=== PATIENT | female | born 1930 | race Caucasian/White ===

== ENCOUNTER 2016-06-28 05:57 | Day surgery (SDC) | payer MEDICARE, OTHER ==
--- NOTE | 2016-06-09 12:14 | NUR ---
Face to face interaction with patient. PMH, allergies, meds reviewed and updated. PReop and DOS instructions given and patient was encouraged to call if she has questions.
[~2016-06-28] VITALS: Ht 162.6 cm; Wt 76.4 kg
[~2016-06-28 05:57] MED LIST: DIPH25CA84 PO; FURO20TA4 PO; LACT1CAP73 PO; LATA2.5D7 BOTH EYES; LEVO100T12 PO; MULT-1198 PO; PANT40TA27 PO; POTA10CA37 PO; WARF1TAB6 PO; [UNRECOGNIZED DRUG - CODE] PO
--- OUTSIDE RECORDS SUMMARY | 2016-06-28 06:01 | XMS REPORT | Continuity of Care Document ---
Author Author [facility] Organization [facility] Address Unknown Phone Unavailable Allergies Active Description Code Type Severity Reaction Onset Reported/Identified Relationship to Patient Clinical Status Yes ETHROMYCIN ETHROMYCIN Drug Allergy Mild RASH 10/22/2015 Medications Problems Procedures Code Description Performed By Performed On 96.05 RESP TRACT INTUBAT Guillaume Cohen MD 03/29/2014 Results Test Result Range HELICOBACTER UREASE SCREEN - 10/23/15 14:46 Microbiology Encounters ACCT No. Visit Date/Time Discharge Status Pt. Type Provider Facility Loc./Unit Complaint [id number] 10/23/2015 13:02:00 2015 15:11:00 DIS Outpatient Shahid AQUINO, [facility].END [id number] 09/23/2015 09:00:00 2015 09:00:00 CAN Outpatient Shahid AQUINO, Alex W.END [id number] 03/29/2014 05:53:00 2014 09:46:00 DIS Outpatient Kelly AQUINO, Guillaume Abdul [facility] W.END
--- OUTSIDE RECORDS SUMMARY | 2016-06-28 06:01 | XMS REPORT | Referral Summary ---
Author Author [facility] Organization [facility] Address Unknown Phone Unavailable Encounter VC Date(s): 07/02/15 - 07/02/15 [facility] [address] [place] [address] [phone] Discharge Disposition: 01-Home or Self Care Attending Physician: Ulises Stark MD Admitting Physician: Ulises Stark MD Vital Signs No data available for this section Problem List No data available for this section Allergies, Adverse Reactions, Alerts No data available for this section Medications No data available for this section Results No data available for this section Immunizations No data available for this section Procedures No data available for this section Social History No data available for this section Assessment and Plan No data available for this section
[2016-06-28 06:22] VITALS: Ht 162.6 cm; Wt 76.4 kg
[2016-06-28 06:23] VITALS: BP 177/84; PULSE 102; RESP 15; TEMP 98.1; O2SAT 95
[2016-06-28] MEDS ORDERED: LR 1,000 ML IV SCH (07:00)
[2016-06-28] MEDS ORDERED: LIDOCAINE 1% (10mg/ml) 2ml SDV INJ ONE (07:00)
[2016-06-28 07:19] LABS: INR 1.25 (0.76-1.04); PROTHROMBIN TIME 13.6 SEC (9.31-12.49)
--- NOTE | 2016-06-28 07:23 | ANESPREOP ---
Anesthesia Record Date and Time DATE: 06/28/16 TIME: 07:15 Proposed Surgical Procedure COLONOSCOPY Allergies: Coded Allergies: erythromycin base (Verified Allergy, Unknown, RASH, 06/28/16) Ht/Wt/BMI Height: 5 ' 4.00 " Weight: 76.400 kg BMI: 28.9 kg/m2 Vital Signs Date Time Temp Pulse Resp B/P Pulse Ox O2 Delivery O2 Flow Rate FiO2 06/28/16 06:23 98.1 102 15 177/84 95 Room Air Medications Inpatient Medications Current Medications Medications (Trade) Dose Ordered Sig/Brian Start Time Stop Time Status Last Admin Dose Admin Lactated Ringer's (Lactated Ringers) 1,000 ml @ 50 mls/hr Q20H 06/28/16 07:00 Diphenhydramine HCl (Benadryl) 25 Mg Capsule, 1 CAP PO HS, (Reported) Last Taken: on 06/27/162199 Furosemide (Furosemide) 20 Mg Tablet, 1 TAB PO HS, (Reported) Last Taken: on 06/27/162199 Lactobacillus Combination No.4 (Probiotic) 1 Each Capsule, 1 CAP PO HS, (Reported) Last Taken: on 06/26/16 0800 Latanoprost (Latanoprost) 2.5 Ml Drops, 1 DROP BOTH EYES HS, (Reported) Last Taken: on 06/27/16 220 Levothyroxine Sodium (Levothyroxine Sodium) 100 Mcg Tablet, 100 MCG PO DAILY, (Reported) Last Taken: on 06/28/16 0530 Multivitamin (Multi Vitamin Daily) 1 Each Tablet, 1 TAB PO NOON, (Reported) Last Taken: on 06/27/16 0800 Pantoprazole Sodium (Pantoprazole Sodium) 40 Mg Tablet.dr, 40 MG PO NOON, (Reported) Last Taken: on 06/28/16 0530 Potassium Chloride (Potassium Chloride) 10 Meq Capsule.er, 1 TAB PO DAILY, (Reported) Last Taken: on 06/27/16 220 Verapamil HCl (Verapamil ER) 240 Mg Tablet.er, 240 MG PO DAILY, (Reported) Last Taken: on 06/27/16 0800 Warfarin Sodium (Warfarin Sodium) 1 Mg Tablet, 3 MG PO DAILY, (Reported) Last Taken: on 06/23/16 0800 Currently on Beta Brenden: No Medical/Surgical History Anesthesia PMH: Reports: *Dyspnea (MUCH IMPROVED SINCE TAKING FUROSEMIDE), * Hypertension, Arthritis, 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), Cancer (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;RT BUTTOCK MELANOMA,BCC NOSE), Deep Vein Thrombosis, Glaucoma (JUST STARTED EYE DROPS 2016), Reflux (well controlled), Thyroid Disease (on replacement- well controlled), Denies: *Angina, *Diabetes, *OK, Anesthesia Reactions, Asthma, COPD, Cardiac Arrythmia, Clotting Problems, Headaches, Hepatitis, Hiatal Hernia, Malignant Hyperthermia, Pacemaker, Pneumonia, Renal Disease, Rheumatic Fever, Seizures, Sleep Apnea, Tuberculosis Smoking Status: Never smoker Use Chewing Tobacco?: No Substance Use Type: does not use HX of Last Menstrual Period: POST MENOPAUSAL Past Surgical History Orthopedic Surgeries: Yes - METATARSAL PINNING Abdominal Surgeries: No Genitourinary Surgeries: No Cardiac Surgeries: No Endocrine Surgeries: No Reproductive Surgeries: Yes - D&C, BERTHA/BSO, LT & RT LUMPECTOMY W/ AX LYMPH NODE DISSECTION Neurological Surgeries: No Ear Surgeries: No Nose Surgeries: No Throat Surgeries: Yes - EGD Other Surgeries: Yes - MELANOMA REMOVAL, COLONOSCOPY, VARICOSE VEIN TRTMT, B CATARACTS PER HX Anesthesia Adverse Reactions: FOUND none Family Hx of Anesthesia Advers: none Hx of Motion Sickness: No Pertinent Findings Test 06/28/16 06:46 Prothromb Time International Ratio 1.25 (0.76-1.04) Physical Exam Respiratory: Lungs clear Cardiovascular: FOUND Regular rate, rhythm Airway Assessment Mallampati Score: II TMD: 3 Fingerbreadths Neck Extension: Good Overall Assessment: No Airway Concerns ASA: 3 Plan Anesthesia Plan: TIVA Discussion Discussed risks/options/alternatives of anesthesia and questions answered. Patient consents. Nursing pain assessment noted. Present: Children (daughter) Attestation Statement Prior to the delivery of any anesthetic medication, I examined the patient, developed the plan, obtained the patient's consent and discussed the risk and benefits of the procedure with the patient/guardian. SHERRILL MCNAIR CRNA Jun 28, 2016 07:23
[2016-06-28] MEDS ORDERED: PROPOFOL 500mg 50 ML IV ONE ×2 (07:30→09:09)
[2016-06-28 09:24] VITALS: BP 160/77; PULSE 95; RESP 12; TEMP 99.2; O2SAT 95
--- NOTE | 2016-06-28 09:24 | GSPOSTPROC ---
Immediate Operative Note DATE: 06/28/16 TIME: 09:22 Postop Diagnosis: * Mild Internal Hemorrhoids * Mild diverticulosis * Multiple colon polyps * Contracture of splenic flexure Surgical Procedure: C-scope w/Polypectomy (and biopsies of splenic flexure and adjacent to polypectomy site.) Surgeon: David ASA: 3 JOHN PARIKH MD Jun 28, 2016 09:24
[2016-06-28 09:39] VITALS: BP 143/68; PULSE 96; RESP 16; O2SAT 90
--- NOTE | 2016-06-28 09:42 | ANESPO ---
Post-Op Note Date 06/28/16 Time: 09:39 Status Pt Participated in Evaluation: Pt participated in person Vital Signs Date Time Temp Pulse Resp B/P Pulse Ox O2 Delivery O2 Flow Rate FiO2 06/28/16 06:23 98.1 102 15 177/84 95 Room Air Respiratory Function: Airway patent Cardiovascular Function: Regular pulse Mental Status: Alert/oriented Pain Level Intensity: 0 Hydration: Taking po fluids Complications during Recovery None apparent Follow-Up Instructions Instructions Per Surgeon SHERRILL MCNAIR CRNA Jun 28, 2016 09:42
[2016-06-28 09:54] VITALS: BP 116/64; PULSE 95; RESP 18; O2SAT 94
[2016-06-28 10:09] VITALS: BP 131/65; PULSE 96; RESP 20; TEMP 98.2; O2SAT 96
--- NOTE | 2016-06-29 10:54 | OPNOTEF ---
DATE OF OPERATION 06/28/2016 SURGEON Benny Hernandez MD PREOPERATIVE DIAGNOSES 1. Hematochezia. 2. Daily use of Coumadin - held for procedure. POSTOPERATIVE DIAGNOSES 1. Mild internal hemorrhoids. 2. Mild pandiverticulosis. 3. 0.5 cm sessile polyp of the rectum x 2. 4. 0.5 cm sessile polyp of the proximal transverse colon x 2. 5. 1 cm sessile polyp of the hepatic flexure - removed in a piecemeal fashion. . 6. 0.5 cm pedunculated polyp of the cecum. 7. 1 cm sessile polyp of the ascending colon - removed in a piecemeal fashion. 8. 0.7 cm sessile polyp of the distal transverse colon. 9. 0.5 cm sessile polyp of the splenic flexure. 10. Abnormal contracture of the splenic flexure of uncertain etiology but no apparent mass or polyp in the location. 11. 0.7 cm sessile polyp of the descending colon x 2. 12. 1.5 cm pedunculated polyp of the sigmoid colon at 18 cm. PROCEDURE Colonoscopy with hot biopsy forceps polypectomy x 3, hot snare polypectomy x 9, biopsies of the splenic flexure abnormality, biopsies of the colon adjacent to the sigmoid colon polypectomy site. ANESTHESIA TIVA ASA CLASS 3 INDICATIONS The patient is an 85-year-old female who is on Coumadin. She had had an episode of hematochezia at the beginning of May. Given the bleeding episode, it was felt that she should have a colonoscopy to investigate for potential sources of bleeding. Her last colonoscopy had been performed in 2011 on 05/20/2011. She had had five prior adenomatous polyps removed between 1997 and 2003. FINDINGS There were mild internal hemorrhoids and a few diverticula scattered throughout the colon. There were numerous polyps with the largest being in the sigmoid colon at 18 cm. This was pedunculated but appeared to be removed in its entirety. There were also large sessile polyps that were oval in shape with one in the hepatic flexure and one in the ascending colon. Given their positions, these required piecemeal excision. There were numerous other polyps that were able to be removed. There was an abnormality in the splenic flexure where three folds of the colon seemed to be drawn together into one condensed area though no mass was appreciated to lead to this anatomy. DESCRIPTION OF PROCEDURE After informed stent was obtained, the patient was taken to the operating room and placed in left lateral decubitus position. IV anesthesia was administered by the anesthesia team. A digital rectal exam was performed and was normal. Olympus video colonoscope with an AmplifEYE device was inserted and retroflexed to examine the distal rectum. Mild internal hemorrhoids were noted. The patient had received a MiraLAX/Dulcolax bowel prep the day prior. The scope was advanced to the mid rectum where two polyps were encountered. These were grasped with hot biopsy forceps and the mucosa was tented prior to application of cautery. Once the base of polyp was cauterized, the polyps were removed with the biopsy forceps and were sent to pathology. After removal of the two polyps in the rectum the scope was advanced up to the proximal transverse colon. There was another polyp that appeared amenable to snare polypectomy. The polyp was encircled with the polypectomy snare and the snare was tightened around the base of the polyp. The mucosa was tented and cautery was applied to resect the polyp. It was retrieved with biopsy forceps through the colonoscope and was sent to pathology. Another 0.5 cm polyp was noted in the proximal transverse colon and this was also removed with the polypectomy snare technique. The scope was advanced up to the hepatic flexure. There was a wider polyp that was encircled with the polypectomy snare but, given its broad-based nature, the polyp was not able to be removed with a single application of the snare. The edge of the polyp that remained after first snare resection was also excised with the polypectomy snare and additional fragments of the edge were removed with hot biopsy forceps. Once the polyp was fully removed, it was withdrawn through the colonoscope and sent to pathology. The scope was then successfully advanced to the cecum without difficulty. The cecum was identified by the appendiceal orifice and ileocecal valve. Within the cecum, there was a 0.5 cm pedunculated polyp and the base of this was able to be grasped with the hot biopsy forceps. The polyp was elevated and cautery was used to divide the base of the polyp after it was cauterized. The forceps were used to retrieve the polyp through the colonoscope. The patient's bowel prep had been very good with minimal residual liquid contents of the colon that were able to be irrigated and evacuated via the colonoscope. During scope withdrawal, a 1 cm polyp in the ascending colon was retrieved with two applications of the polypectomy snare. The scope was withdrawn to the distal transverse colon where a 0.7 cm polyp was encountered. It was removed with the hot snare polypectomy technique. Another slightly smaller polyp of 0.5 cm was noted in the splenic flexure and it was removed with a hot snare polypectomy technique. With the abnormality noted in the splenic flexure and because of the hot appearance, multiple biopsies of the mucosa in this region were taken and were sent to pathology. Two 0.7 cm polyps were encountered in the descending colon. Both of these were removed with a hot snare polypectomy technique. The final polyp was encountered in the sigmoid colon at 18 cm. This appeared to be a large 1.5 cm pedunculated polyp with a stalk that had formed due to traction. Manipulation of the polypectomy snare did allow encircling the polyp at its base, but further manipulation down onto the stalk of the polyp was not able to be achieved, so the stalk was divided at the base of the polyp. Suction was used to hold the polyp at the end of the scope as the scope was withdrawn. The polyp was then removed from the end of the scope and was sent to pathology. The colonoscope was reinserted back to the polypectomy site and further withdrawal of the scope was performed after some biopsies of the possibly abnormal adjacent mucosa were taken. No other abnormalities were noted. The polypectomy sites performed during scope insertion were hemostatic on scope withdrawal. The patient tolerated the procedure well. She was awakened and transferred to the recovery area in stable condition. RECOMMENDATIONS 1. Await pathology results to determine appropriate recommendations based on her multiple polyps. 2. Hold Coumadin for an additional 5 days given the numerous polypectomy sites including some larger piecemeal excision sites. MAGGIE
== END 2016-06-28 10:11 | disposition home or self-care (01) ==
LOC: SCU 05:57
PROVIDERS: ATTEND Surgery
DX: C18.5 Malignant neoplasm of splenic flexure (principal); D12.0 Benign neoplasm of cecum; D12.3 Benign neoplasm of transverse colon; D12.2 Benign neoplasm of ascending colon; D12.4 Benign neoplasm of descending colon; D12.5 Benign neoplasm of sigmoid colon; D12.6 Benign neoplasm of colon, unspecified; D12.8 Benign neoplasm of rectum; K92.1 Melena; K64.8 Other hemorrhoids; K57.30 Diverticulosis of large intestine without perforation or abscess without bleeding; K56.69 Other intestinal obstruction; Z86.010 Personal history of colon polyps; Z80.0 Family history of malignant neoplasm of digestive organs; Z79.01 Long term (current) use of anticoagulants; I48.0 Paroxysmal atrial fibrillation; I10 Essential (primary) hypertension; E78.00 Pure hypercholesterolemia, unspecified; E03.9 Hypothyroidism, unspecified; I69.354 Hemiplegia and hemiparesis following cerebral infarction affecting left non-dominant side; Z86.718 Personal history of other venous thrombosis and embolism; G25.0 Essential tremor; J30.9 Allergic rhinitis, unspecified; K21.9 Gastro-esophageal reflux disease without esophagitis; Z79.899 Other long term (current) drug therapy
CPT/HCPCS: 36415; 45380; 45384; 45385; 85610; J7120; 88305

== ENCOUNTER 2016-07-21 05:51 | Inpatient (IN) | payer MEDICARE, OTHER ==
[~2016-07-21] VITALS: Ht 160 cm; Wt 81.3 kg
[2016-07-21] VITALS (23 sets, daily range): BP systolic 146–172; BP diastolic 67–86; PULSE 75–99; RESP 12–19; TEMP 97.6–98.8; O2SAT 89–98; Ht 160 cm; Wt 81.3 kg
[~2016-07-21 05:51] MED LIST changes: +DIGO125T88 PO; -PANT40TA27 PO
--- OUTSIDE RECORDS SUMMARY | 2016-07-21 05:55 | XMS REPORT | Continuity of Care Document ---
Author Author [facility] Organization [facility] Address Unknown Phone Unavailable Support Name Relationship Address Phone JOHN HERNANDEZ MD Caregiver [address] [place] [address] Unavailable LA PANIAGUA DO Caregiver [address] [place] [address] Unavailable DENISA SERRATO Next Of Kin [address] [place] [address] Insurance Providers Guarantor Christina Serrato Address [address] [place] [address] Email Payer Medicare Policy Number [id number] Subscriber's Name Christina Serrato Relationship 18 Self Effective Date 93 Payer [employer] Policy Number [id number] Subscriber's Name Christina Serrato Relationship 18 Self Group Number [id number] Effective Date 93 Advance Directives Directive Response Recorded Date/Time Ordered Resuscitation Status Full Code 06/25/16 3:17pm Resuscitation Documents on File No 06/28/16 6:28am DPOA for Healthcare Only No 06/28/16 6:28am Living Will No 06/28/16 6:28am Problems Active Problems Medical Problem Onset Date Status Abrasion Unknown Acute Leg pain Unknown Acute Leg pain, anterior Unknown Acute Leg wound, right Unknown Acute Spasm of paraspinal muscle Unknown Acute Urticaria not otherwise specified Unknown Acute Medications Current Home Medications Medication Dose Units Route Directions Days Qty Instructions Start Date Diphenhydramine Hcl (Benadryl) 25 Mg Capsule 1 Cap Oral Bedtime 06/09/16 Furosemide 20 Mg Tablet 1 Tab Oral Bedtime 06/09/16 Lactobacillus Combination No.4 (Probiotic) 1 Each Capsule 1 Cap Oral Bedtime 06/09/16 Latanoprost 2.5 Ml Drops 1 Drop Both Eyes Bedtime 06/25/16 Levothyroxine Sodium 100 Mcg Tablet 100 Mcg Oral Daily 01/29/14 Multivitamin (Multi Vitamin Daily) 1 Each Tablet 1 Tab Oral Give At Noon 06/05/15 Pantoprazole Sodium 40 Mg Tablet.dr 40 Mg Oral Give At Noon 06/04 Potassium Chloride 10 Meq Capsule.er 1 Tab Oral Daily 06/09/16 Verapamil Hcl (Verapamil Er) 240 Mg Tablet.er 240 Mg Oral Daily 01/29/14 Warfarin Sodium 1 Mg Tablet 3 Mg Oral Daily Hold for 5 days after colonoscopy 01/29/14 Past Home Medications Medication Directions Ordered Status Acetaminophen/Dp-Hydram Hcl (Tylenol Pm Ex-Str Caplet) 1 Tab Tablet, 1 Tab Oral As Needed 05/20/11 Discontinued Diphenhydramine Hcl (Benadryl) 25 Mg Capsule, 25 Mg Oral Daily 05/18/11 Discontinued Fenofibrate Nanocrystallized (Tricor) 145 Mg Tablet, Daily 03/23/10 Discontinued Multivitamins (Multivitamin) 1 Tab Tablet, 1 Tab Oral Daily 05/20/11 Discontinued Omeprazole (Prilosec) 20 Mg Capsule.dr, 40 Mg Oral Daily 05/18/11 Discontinued Simvastatin , 20 Daily 10/11/09 Discontinued Vermapil , 10/11/09 Discontinued Warfarin Sodium (Coumadin) 2 Mg Tablet, 1 Daily Except Tue10/11/09 Discontinued Warfarin Sodium (Coumadin) 3 Mg Tablet, 3 Mg Oral Tuesday Only 09/16/11 Discontinued Social History Social History Problem Response Recorded Date/Time Onset Date Status Reason for Hospitalization colonoscopy 06/28/2016 9:32am Not Applicable Not Applicable Chewing Tobacco Status No 06/09/2016 11:42am Not Applicable Not Applicable Hx Substance Use No 06/09/2016 11:42am Not Applicable Not Applicable Hx Alcohol Use No 06/09/2016 11:42am Not Applicable Not Applicable Has the pt used tobacco in the last 12 months No 06/25/2016 9:23am Not Applicable Not Applicable Tobacco Usage none 06/05/2015 10:01pm Not Applicable Not Applicable Query Response Start Date Stop Date Smoking Status Former smoker Hospital Discharge Instructions Instructions: Care Instructions: I was in the hospital because (patient own words): colonoscopy Discharge Diet: You may resume your usual diet. Discharge Activity: You may resume your usual activity. Follow Up Appointments: No specific follow-up appointment with Dr. Hernandez is necessary. You can call his office for any questions or concerns ([phone]). Dr. Hernandez's office will notify you of your results in about 2 weeks. Pending Lab / Results: Will be notified Patient Instructions: Hold coumadin 5 days before restarting Do not drive, operate machinery, drink alcohol, or sign important papers for 24 hours. Expected Signs/Symptoms: You may have some gas discomfort. You may have some rectal bleeding due to the multiple polyps that were removed. Notify Physician If: Contact Dr. Hernandez if you have a fever over 101 degrees, severe abdominal pain, or severe rectal bleeding. During Business Hours:: *In the event of an emergency, call 911 or seek medical care at the nearest emergency room.* During office hours, call Dr. Hernandez's office at [phone]. After Business Hours:: After hours, please call [facility] at [phone] and have the ecdis n navigation operator page Dr. Hernandez or the covering surgeon. Pain Management/Treatment: You should not have significant pain following the procedure. Wound/Incision Care: No wound care required. Condition at time of discharge: Good Plan of Care Discharge Date 06/28/16 10:11am Instructions/Education Provided [facility] Prescriptions See Medication Section Functional Status Query Response Date Recorded Ability to complete ADL's impeded by No change June 28, 2016 6:28am Allergies, Adverse Reactions, Alerts Allergen Type Severity Reaction Status Last Updated Erythromycin base Allergy Unknown RASH Active 06/28/16 Immunizations Query Response on File Recorded Date/Time Hx Influenza Vaccination Y fall 201506/09/16 11:42am Hx Pneumococcal Vaccination Y fall 201506/09/16 11:42am Hx Influenza Vaccination Y fall 201506/09/16 11:42am Hx Tetanus Diptheria Y 03/23/10 08/22/14 4:06am Vital Signs Acute Vital Signs Vital Response Date/Time Temperature (Fahrenheit) 98.2 deg F (96.8 - 99.1) 06/28/2016 10:09am Temperature (Calculated Celsius) 36.43850 degrees C (36.0 - 37.3) 06/28/2016 10:09am Temperature Source Oral 06/28/2016 10:09am Pulse Rate (adult) 96 bpm (60 - 100) 06/28/2016 10:09am Respiratory Rate 20 breaths/min (10 - 20) 06/28/2016 10:09am O2 Sat by Pulse Oximetry 96 % (90 - 100) 06/28/2016 10:09am Oxygen Delivery Method Room Air 06/28/2016 10:09am Blood Pressure 131/65 mm Hg 06/28/2016 10:09am Blood Pressure Source Automatic Cuff 06/28/2016 10:09am Height (Feet) 5 feet 06/28/2016 6:22am Height (Inches) 4.00 inches 06/28/2016 6:22am Weight (Kilograms) 76.400 kg 06/28/2016 6:22am Body Mass Index (BMI) 28.9 06/28/2016 6:22am Results Laboratory Results Test Name Result Units Flags Reference Collection Date/Time Result Date/ Time Comments Prothromb Time International Ratio 1.25 H 0.76-1.04 06/28/2016 6:46am 06/28/2016 7:19am THERAPUTIC RANGE=2.00-3.00 FOR ANTI-THROMBOSIS THERAPUTIC RANGE=2.50-3.50 FOR IMPLANTED VALVE Procedures Procedure Status Date Provider(s) Chest x-ray 2vw frontal&latl Completed 05/25/16 Tte w/doppler complete Completed 05/27/16 Colonoscopy with polypectomy and biopsy Completed 06/28/16 JOHN HERNANDEZ MD Encounters Encounter Location Arrival/Admit Date Discharge/Depart Date Attending Provider Departed [facility] 06/28/16 5:57am 06/28/16 10 :11am JOHN HERNANDEZ MD Registered [facility] 05/27/16 12:37pm HONG QUIÑONES MD Registered [facility] 05/25/16 10:09am LA PANIAGUA DO
--- OUTSIDE RECORDS SUMMARY | 2016-07-21 05:55 | XMS REPORT | Continuity of Care Document ---
Author Author [facility] Organization [facility] Address Unknown Phone Unavailable Allergies Active Description [...] Status Pt. Type Provider Facility Loc./Unit Complaint [id number] 10/23/2015 13:02:00 2015 15:11:00 DIS Outpatient Shahid AQUINO, [facility]END [id number] 09/23/2015 09:00:00 2015 09:00:00 CAN Outpatient Shahid AQUINO, Alex [facility]END [id number] 03/29/2014 05:53:00 2014 09:46:00 DIS Outpatient Kelly AQUINO, Guillaume Abdul [facility]
[2016-07-21] MEDS ORDERED: ALVIMOPAN 12 MG CAPSULE PO ONE (06:00)
[2016-07-21 06:32] LABS: BASOPHILS # (AUTO) 0.1 T/MM3 (0-0.2); BASOPHILS % (AUTO) 1.1 % (0-2); EOSINOPHILS # (AUTO) 0.3 T/MM3 (0-0.5); EOSINOPHILS % (AUTO) 3.7 % (0-4); HGB - HEMOGLOBIN 15.8 GM/DL (12-16); IMMATURE GRANULOCYTE # (AUTO) 0.02 T/MM3 (0.00-0.03); IMMATURE GRANULOCYTE % (AUTO) 0.3 % (0.0-0.5); LYMPHOCYTES # (AUTO) 2.2 T/MM3 (1-4.8); LYMPHOCYTES % (AUTO) 32.2 % (23-45); MEAN CORPUSCULAR HGB 28.7 UUG (26-34); MEAN CORPUSCULAR HGB CONC(MCHC 32.9 GM/DL (31-37); MEAN CORPUSCULAR VOLUME 87.1 UM3 (80-100); MEAN PLATELET VOLUME 9.6 UM3 (9.4-12.4); MONOCYTES # (AUTO) 0.7 T/MM3 (0-0.8); MONOCYTES % (AUTO) 10.3 % (0-9.0); NEUTROPHILS #(AUTO)-ABSOLUTE 3.6 T/MM3 (1.8-7.7); NEUTROPHILS % (AUTO) 52.4 % (33-66); RED BLOOD COUNT 5.51 M/MM3 (4.00-5.20)
[2016-07-21 06:36] LABS: INR 1.02 (0.76-1.04); PROTHROMBIN TIME 11.1 SEC (9.31-12.49)
[2016-07-21 06:43] LABS: ALBUMIN/GLOBULIN RATIO 1.2 RATIO (1.1-2.2); ALKALINE PHOSPHATASE 71 U/L (38-126); ALT (SGPT) 48 U/L (9-52); ANION GAP 16 MEQ/L (5-15); AST (SGOT) 41 U/L (14-36); BUN/CREATININE RATIO 33 RATIO (6-26); CALCIUM 9.4 MG/DL (8.4-10.2); CHLORIDE 105 MEQ/L (98-107); CO2 - CARBON DIOXIDE 27 MEQ/L (22-30); CREATININE 0.7 MG/DL (0.7-1.2); GLOMERULAR FILTRATION RATE 79; GLUCOSE 117 MG/DL (65-110); POTASSIUM 3.7 MEQ/L (3.6-5); SODIUM 148 MEQ/L (134-144); TOTAL PROTEIN 7.4 G/DL (6.3-8.2)
[2016-07-21] MEDS ORDERED: LIDOCAINE 1% (10mg/ml) 2ml SDV INJ ONE (07:00)
[2016-07-21] MEDS: LR 1,000 ML IV SCH ×3 (07:06→19:19)
--- NOTE | 2016-07-21 07:19 | ANESPREOP ---
Anesthesia Record Date and Time DATE: 07/21/16 TIME: 07:08 Pre-Op Diagnosis colon ca Proposed Surgical Procedure OPEN COLON RESECTION OF SPLENIC FLEXURE NPO since: mn Allergies: Coded Allergies: erythromycin base (Verified Allergy, Unknown, RASH, 06/28/16) Ht/Wt/BMI Height: 5 ' 3.00 " Weight: 75.000 kg BMI: 29.3 kg/m2 Vital Signs Date Time Temp Pulse Resp B/P Pulse Ox O2 Delivery O2 Flow Rate FiO2 07/21/16 06:47 98.3 75 15 165/74 94 Room Air Medications Inpatient Medications Current Medications Medications (Trade) Dose Ordered Sig/Brian Start Time Stop Time Status Last Admin Dose Admin Lactated Ringer's (Lactated Ringers) 1,000 ml @ 125 mls/hr Q8H 07/21/16 07:00 07/21/16 07:06 125 MLS/HR Digoxin (Digoxin) 125 Mcg Tablet, 1 TAB PO DAILY, (Reported) Last Taken: on 07/21/16514 Diphenhydramine HCl (Benadryl) 25 Mg Capsule, 1 CAP PO HS, (Reported) Last Taken: on 07/20/16 Furosemide (Furosemide) 20 Mg Tablet, 1 TAB PO 4XW, (Reported) PT TAKES 20 MG OF LASIX 2 DAYS IN A ROW, ON THIRD DAY 40 MG THEN CYCLE REPEATS. Last Taken: on 07/19/16 Lactobacillus Combination No.4 (Probiotic) 1 Each Capsule, 1 CAP PO HS, (Reported) Last Taken: on 07/20/16 Latanoprost (Latanoprost) 2.5 Ml Drops, 1 DROP BOTH EYES HS, (Reported) Last Taken: on 07/20/16 Levothyroxine Sodium (Levothyroxine Sodium) 100 Mcg Tablet, 100 MCG PO DAILY, (Reported) Last Taken: on 07/21/16514 Multivitamin (Multi Vitamin Daily) 1 Each Tablet , 1 TAB PO NOON, (Reported) Last Taken: on 07/20/16 Potassium Chloride (Potassium Chloride) 10 Meq Capsule.er, 1 TAB PO DAILY, (Reported) Last Taken: on 07/20/16 Verapamil HCl (Verapamil ER) 240 Mg Tablet.er, 240 MG PO DAILY, (Reported) Last Taken: on 07/21/16514 Warfarin Sodium (Warfarin Sodium) 1 Mg Tablet, 3 MG PO DAILY, (Reported) Hold for 5 days after colonoscopy Last Taken: on 07/15/16 Currently on Beta Brenden: No Medical/Surgical History Anesthesia PMH: Reports: *Dyspnea (MUCH IMPROVED SINCE TAKING FUROSEMIDE), * Hypertension (Seen Dr. 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;RT BUTTOCK MELANOMA,BCC NOSE), Deep Vein Thrombosis, Glaucoma (JUST STARTED EYE DROPS 2016), Hiatal Hernia, Other (essential tremor ), Reflux (well controlled), Thyroid Disease (on replacement- well controlled), Denies: *Angina, *Diabetes, *NE, Anesthesia Reactions (NO AIRWAY ISSUES ), Asthma, COPD, Cardiac Arrythmia, Clotting Problems (TAKES WARFIN-BRUISES EASILY- NO BLEEDING ), Headaches, Hepatitis, Malignant Hyperthermia, Pacemaker, Pneumonia, Renal Disease, Rheumatic Fever, Seizures, Sleep Apnea, Tuberculosis Use Chewing Tobacco?: No Substance Use Type: does not use HX of Last Menstrual Period: HYST. Past Surgical History Orthopedic Surgeries: Yes - METATARSAL PINNING Abdominal Surgeries: No Genitourinary Surgeries: No Cardiac Surgeries: No Endocrine Surgeries: No Reproductive Surgeries: Yes - D&C, BERTHA/BSO, LT & RT LUMPECTOMY W/ AX LYMPH NODE DISSECTION Neurological Surgeries: No Ear Surgeries: No Nose Surgeries: No Throat Surgeries: Yes - EGD Other Surgeries: Yes - MELANOMA REMOVAL, COLONOSCOPY, VARICOSE VEIN TRTMT, B CATARACTS Anesthesia Adverse Reactions: FOUND none Pertinent Findings Laboratory Tests 07/21/16 06:15 Test 07/21/16 06:15 Prothromb Time International Ratio 1.02 (0.76-1.04) EKG Rhythm: Sinus Rhythm Physical Exam Respiratory: Bilat breath sounds equal, Lungs clear Cardiovascular: FOUND Irregularly irregular, FOUND No murmur Airway Assessment Mallampati Score: III TMD: 2 Fingerbreadths Neck Extension: Poor Overall Assessment: May Be Diff Intubation ASA: 3 Plan Anesthesia Plan: GETA (pt undestands she is at risk for NE, stroke, , post op ventilation , ) Discussion Discussed risks/options/alternatives of anesthesia and questions answered. Patient consents. Nursing pain assessment noted. Attestation Statement Prior to the delivery of any anesthetic medication, I examined the patient, developed the plan, obtained the patient's consent and discussed the risk and benefits of the procedure with the patient/guardian. FRANCIS CONLEY CRNA July 21, 2016 07:12
[2016-07-21] MEDS ORDERED: ACETAMINOPHEN 1,000 MG in RTU-SALINE 100 ML IV ONE (07:30)
[2016-07-21] MEDS ORDERED: HEPARIN SUB-Q 5,000 unit/0.5ml vial SQ ONE (07:30)
[2016-07-21] MEDS ORDERED: ERTAPENEM 1 G in NORMAL SALINE 100 ML IV ONE (07:30)
[2016-07-21] MEDS ORDERED: FENTANYL 100mcg/2ml INJECTION ONE ×3 (07:34→11:00)
[2016-07-21] MEDS ORDERED: LIDOCAINE JELLY 2% 30ml TUBE ONE ×2 (07:34→07:39)
[2016-07-21] MEDS ORDERED: FENTANYL 250mcg/5ml INJECTION ONE (07:34)
[2016-07-21] MEDS ORDERED: DEXAMETHASONE 4mg/ml - 1ml INJECTION ONE ×2 (07:34→07:48)
[2016-07-21] MEDS ORDERED: METOCLOPRAMIDE 10mg/2ml INJECTION ONE ×2 (07:34→07:48)
[2016-07-21] MEDS ORDERED: MIDAZOLAM 2mg/2ml INJECTION ONE ×2 (07:34)
[2016-07-21] MEDS ORDERED: LABETALOL 20mg/4ml INJECTION IV ONE ×2 (07:34→09:05)
[2016-07-21] MEDS ORDERED: ONDANSETRON 4mg/2ml INJECTION ONE ×4 (07:34→11:09)
[2016-07-21] MEDS ORDERED: ROCURONIUM 50mg/5ml INJECTION IV ONE ×2 (07:34→07:35)
[2016-07-21] MEDS ORDERED: PROPOFOL 200mg 20 ML IV ONE (07:35)
[2016-07-21] MEDS ORDERED: SCOPOLAMINE 1.5 MG PATCH TD ONE (07:45)
[2016-07-21] MEDS ORDERED: PROPOFOL 200mg 200 MG, ESMOLOL 50 MG, KETAMINE 50 MG, LIDOCAINE 2% 100 MG, DEXMEDETOMID... IV ONE ×12 (07:45)
[2016-07-21] MEDS ORDERED: HYDROMORPHONE 2mg/ml INJECTION IV PRN ×2 (09:45→12:15)
--- NOTE | 2016-07-21 12:13 | GSPOSTPROC ---
Immediate Operative Note DATE: 07/21/16 TIME: 12:12 Postop Diagnosis: distal transverse colon cancer Surgery Type: Open Surgical Procedure: Other (Colon resection) Surgeon: David Assisting Surgeon: Amanda ASA: 3 JOHN PARIKH MD July 21, 2016 12:13
[2016-07-21] MEDS ORDERED: METOCLOPRAMIDE 10mg/2ml INJECTION IV PRN (12:15)
[2016-07-21] MEDS ORDERED: ONDANSETRON 4mg/2ml INJECTION IV PRN (12:15)
--- NOTE | 2016-07-21 12:37 | NUR ---
ADMIT ADMIT AT THIS TIME TO ROOM 134 VIA CART AND PACU STAFF. SLIDE BOARD USED TO TRANSFER PATIENT OVER TO SURGICAL UNIT BED. A/OX3 BUT DROWSY. DENIES PAIN. DRESSING ON ABDOMEN CLEAN, DRY, INTACT. DENIES N/V, CHEST PAIN, AND SOA. BED IN THE LOWEST POSITION, CALL LIGHT WITHIN REACH, SIDE RAILS XUP2, AND BED ALARM ON. WILL CONTINUE TO MONITOR.
[2016-07-21] MEDS: ACETAMINOPHEN 500 MG TABLET PO SCH ×2 (13:33→19:31)
--- NOTE | 2016-07-21 14:09 | ANESPO ---
Post-Op Note Date 07/21/16 Time: 12:15 Status Pt Participated in Evaluation: Pt participated in person Vital Signs Date Time Temp Pulse Resp B/P Pulse Ox O2 Delivery O2 Flow Rate FiO2 07/21/16 13:46 87 158/69 98 Nasal Cannula 3.00 07/21/16 12:46 97.8 18 Respiratory Function: Airway patent Cardiovascular Function: Regular pulse Mental Status: Alert/oriented Pain Level Intensity: 0 Hydration: IV infusing Complications during Recovery None apparent Follow-Up Instructions Instructions Per Surgeon FRANCIS CONLEY CRNA July 21, 2016 14:09
[2016-07-21] MEDS: KETOROLAC 30mg/ml INJECTION IV PRN (15:25)
--- NOTE | 2016-07-21 18:32 | NUR ---
END OF SHIFT REPORT PATIENT A/OX3. 2 LITERS O2 VIA NASAL CANNULA. AFEBRILE. VITAL SIGNS STABLE. PT HAS NOT BEEN OUT OF BED YET. PAIN HAS BEEN CONTROLLED WITH PRN TORADOL. SCHEDULED DOSE OF TYLENOL WAS NOT ADMINISTERED DUE TO PATIENT THINKING SHE WAS TOO TIRED TO SWALLOW PILLS. DENIES N/V, CHEST PAIN, AND SOA. ADEQUATE OUTPUT FROM BAILEY CATHETER. DRESSING CLEAN, DRY, INTACT. WILL CONTINUE TO MONITOR.
[2016-07-21] MEDS: LATANOPROST 0.005% EYE DROPS 2.5 ML BOTTLE BOTH EYES SCH (21:36)
[2016-07-22] VITALS (8 sets, daily range): BP systolic 127–149; BP diastolic 60–87; PULSE 64–86; RESP 16–18; TEMP 97.3–98.3; O2SAT 90–96
[2016-07-22] MEDS: LR 1,000 ML IV SCH ×3 (03:05→20:43)
[2016-07-22] MEDS: KETOROLAC 30mg/ml INJECTION IV PRN ×2 (03:09→10:17)
[2016-07-22 05:10] LABS: BASOPHILS % (AUTO) 0.2 % (0-2); HCT - HEMATOCRIT 42.7 % (36-46); HGB - HEMOGLOBIN 13.8 GM/DL (12-16); IMMATURE GRANULOCYTE # (AUTO) 0.03 T/MM3 (0.00-0.03); IMMATURE GRANULOCYTE % (AUTO) 0.3 % (0.0-0.5); LYMPHOCYTES # (AUTO) 1.7 T/MM3 (1-4.8); MEAN CORPUSCULAR HGB 28.8 UUG (26-34); MEAN CORPUSCULAR HGB CONC(MCHC 32.3 GM/DL (31-37); MEAN CORPUSCULAR VOLUME 89.1 UM3 (80-100); MEAN PLATELET VOLUME 10.2 UM3 (9.4-12.4); MONOCYTES # (AUTO) 1.2 T/MM3 (0-0.8); NEUTROPHILS #(AUTO)-ABSOLUTE 8.6 T/MM3 (1.8-7.7); NEUTROPHILS % (AUTO) 74.5 % (33-66); RED BLOOD COUNT 4.79 M/MM3 (4.00-5.20); WBC - WHITE BLOOD COUNT 11.5 T/MM3 (4.5-11.0)
[2016-07-22 05:22] LABS: ANION GAP 10 MEQ/L (5-15); BUN/CREATININE RATIO 31 RATIO (6-26); CALCIUM 8.3 MG/DL (8.4-10.2); CHLORIDE 105 MEQ/L (98-107); CO2 - CARBON DIOXIDE 26 MEQ/L (22-30); CREATININE 0.8 MG/DL (0.7-1.2); GLOMERULAR FILTRATION RATE 68; GLUCOSE 138 MG/DL (65-110); POTASSIUM 4.4 MEQ/L (3.6-5); SODIUM 141 MEQ/L (134-144)
[2016-07-22] MEDS: ACETAMINOPHEN 500 MG TABLET PO SCH ×3 (05:34→20:41)
[2016-07-22] MEDS: LEVOTHYROXINE 100 MCG TABLET PO SCH (05:36)
--- NOTE | 2016-07-22 05:42 | NUR ---
DR NOTIFIED DR PARIKH WAS NOTIFIED OF LOW URINE OUTPUT THIS AM. NO NEW ORDERS AT THIS TIME. WILL CONTINUE TO MONITOR FLUIDS ARE INCREASED ORALLY.
--- NOTE | 2016-07-22 06:24 | NUR ---
SHIFT SUMMARY PT ALERT AND ORIENTED X3,VITAL SIGNS ARE STABLE ON 2L02 VIA NC. DENIES C/P,N/V AND SOA. PT HAS DENIED NEED OF ASSISTANCE FOR REPOSITIONING IN BED. PT HAS ASKED FOR PRN PAIN MEDICATION, IV TORADOL WAS ADMINISTERED ONCE ON THIS SHIFT. PT HAS REMAINED RESTING IN BED THROUGHOUT THE NIGHT. PT STATES THAT SHE HAD DIFFICULTY REACHING THE SIDE CALL LIGHT, AT BEGINNING OF SHIFT THIS RN PLACED A HANDHELD CALL LIGHT WITHIN REACH OF THE PT. WILL CONTINUE TO MONITOR.
--- NOTE | 2016-07-22 07:40 | OPNOTEF ---
DATE OF OPERATION 07/21/2016 SURGEON Benny Hernandez MD LEAF SIZE PICKER Dr. 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 POSTOPERATIVE DIAGNOSES 1. 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 2. Small umbilical hernia. PROCEDURE Open resection of distal transverse colon, splenic flexure, and proximal descending colon with [id number] functional end-to-end stapled anastomosis. ANESTHESIA General. ASA CLASS 3 INDICATIONS The patient is an 85-year-old female who had a colonoscopy on 06/28/2016. There had been a mucosal abnormality at the splenic flexure and biopsies were taken. These had shown intramucosal moderately differentiated colonic adenocarcinoma involving at least one of the biopsy fragments. Because of the cancer cells seen on biopsies, a colon resection of the area was recommended. FINDINGS The small initial surgical specimen between two vessels proximal and distal to the splenic flexure showed a small polyp and an area of mucosal irregularity that was shown to be a biopsy site on frozen section. It was felt this was actually more likely a polypectomy site than the lesion of concern, so an additional specimen was taken of the distal transverse colon. This did reveal a firm mucosal irregularity that was confirmed by frozen section analysis to be not only an intramural adenocarcinoma but an invasive adenocarcinoma. There was a good blood supply of the mid transverse colon and the descending colon at the area of anastomosis and there was also significant mobility of the transverse colon that allowed for a tension-free [id number] functional end-to-end anastomosis. No other abnormalities of the liver, peritoneum, or other intraabdominal contents were noted. DESCRIPTION OF PROCEDURE After informed consent was obtained, the patient was taken to the operating room and placed in supine position. General endotracheal anesthesia was administered by the anesthesia team. The patient's abdomen was then prepped and draped in usual sterile fashion. A vertical midline incision was then created between the xiphoid and umbilicus. Electrocautery was used to dissect down through the subcutaneous tissue to the level of the fascia. A small hernia defect was noted at the base of the umbilical stalk, so the umbilical stalk was divided with cautery. The fascia was divided with cautery. The peritoneum was elevated between clamps and opened with Metzenbaum scissors. The fascial incision and peritoneal incision were then extended to the xiphoid and to slightly below the umbilical ring. An Pepe wound protector was inserted. The abdomen was explored with palpation of the liver as well as visual inspection. The remainder of the abdomen was visualized and no abnormalities were noted. An Pepe wound protector was inserted and a Bookwalter retractor was used to achieve exposure. The greater omentum was then taken off of the distal transverse colon with cautery. The greater omentum was densely adherent to the mesentery, so care was taken to avoid injury of the mesentery. This led to some bleeding from vessels of the greater omentum which were clamped and ligated using 0 Vicryl sutures. The white line of Toldt was then divided laterally and dissection was continued up around the splenic flexure until the splenic flexure was fully mobilized. The mesentery of the distal transverse colon was transilluminated and a large vessel was identified. This was palpated and had arterial flow, so the dissection was continued just distal to the vessel up to the wall of the colon which was dissected free circumferentially. There was a large marginal artery branch that was clamped and tied. The left colic artery was identified after additional mobilization. There was some bleeding from a vessel on the surface of Gerota's fascia that was clamped and ligated. A plane of mesenteric division along the proximal aspect of the left colic artery was selected. The mesentery was divided between clamps and the mesenteric edges were controlled with 0 Vicryl sutures. Following dissection of these two regions, it was noted that there was a very short segment of colon at the splenic flexure but, given the small abnormality, it was felt that this specimen may be adequate if it remained an intramucosal carcinoma, so the segment was excised after the bowel was divided with a TLC 75 stapler. The remaining aspects of the mesentery of the transverse colon were clamped and divided. The edges of the mesentery were controlled with 0 Vicryl ties. The specimen was then opened on the back table and the mucosal abnormality was identified and marked with a suture to aid the pathologist in frozen section analysis. Frozen section analysis came back as the biopsy fragment, but it was felt that this did not represent the carcinoma since no residual carcinoma cells were seen. Attention was turned to the distal transverse colon and additional greater omentum was cleared from the transverse colon mesentery. Translumination was again used to identify a large branch of the middle colic artery extending up to the mid transverse colon. This was spared and the mesentery was divided just distal to the arterial branch up to the wall of the colon. The colon was divided at this level with a reload of the TLC 75 stapler. When the mesenteric dissection was complete, the specimen was opened on the back table and the more significant mucosal irregularity was identified. It was sent to pathology for confirmation of the lesion in question. Frozen section analysis did come back showing not only cancer cells but invasive adenocarcinoma. Since resection had been completed and confirmed by frozen section analysis, attention was turned to fashioning of the anastomosis. The cut ends of the bowel did overlap significantly to the point that they could be laid adjacent to each other with no tension for greater than 10 cm. Given this redundancy, it was felt that a [id number] functional end-to-end anastomosis would be the best method of reestablishing continuity of the bowel. The abdomen was irrigated copiously with saline and suctioned free of fluid to assure hemostasis. Any areas of additional bleeding on the omentum were clamped and tied with Vicryl sutures. Once hemostasis was assured, the corners of the staple lines of the bowel were cut off and a reload of the linear cutting stapler was placed within the bowel lumen with one side of the stapler in each bowel segment. The stapler was then fired along the antimesenteric borders of the bowel to create the common channel. The staple lines at the edge of the common enterotomy were grasped with Allis clamps and offset. The common enterotomy was closed with a firing of a TX60B stapler. The anastomosis was palpated and was found to be adequate. Two 3-0 Vicryl stitches were placed at the crotch of the anastomosis to prevent unzippering of the staple line. The anastomosis rested without tension. It was noted that there were some bowel loops passing through the defect in the mesentery, so the mesentery was closed with a running 3-0 PDS suture. With the mesenteric defect closed, the greater omentum was draped over the anastomosis and beneath the incision. The entire surgical team changed gowns and gloves and new equipment was used for closure. I had removed the Bookwalter retractor and Pepe wound protector with a clean glove prior to changing equipment and redraping of the patient's abdomen. The subcutaneous layer was inspected and hemostasis was achieved with a new electrocautery pencil. The fascia was then closed with a running #1 PDS suture. The base of the umbilicus was tacked back to the fascia using a [id number] stitch of 3-0 Vicryl. The skin was closed with skin paty. The patient tolerated the procedure well. She was awakened, extubated, and transferred to the recovery area in stable condition. MAGGIE
[2016-07-22] MEDS: DIGOXIN 125 MCG TABLET PO SCH (09:24)
[2016-07-22] MEDS: ALVIMOPAN 12 MG CAPSULE PO SCH ×2 (09:24→20:41)
[2016-07-22] MEDS: VERAPAMIL SR 240 MG TABLET PO SCH (09:24)
[2016-07-22] MEDS: ENOXAPARIN 30 MG/0.3 ML INJECTION SQ SCH ×2 (09:25→20:41)
--- NOTE | 2016-07-22 10:27 | NUR ---
CM CM IN TO VISIT WITH PT. SHE IS ALERT AND ORIENTED. SHE REPORTS THAT SHE PLANS TO RETURN HOME. SHE HAS 1 DAUGHTER THAT LIVES WITH HER AND ANOTHER THAT WILL BE VISITING FOR AN EXTENDED TIME. BOTH ARE ABLE TO ASSIST HER NEEDED. SHE DENIES NEED FOR ADDITIONAL SERVICES. SHE IS GIVEN CM CONTACT INFORMATION. DEEE SCORE IS 8. Addendum: 07/22/16 at 1028 by TATE SANTOS RN Amended: Links added.
--- NOTE | 2016-07-22 11:47 | PNF ---
DATE OF VISIT 07/22/2016 REASON FOR VISIT Postoperative followup. LIZ Vasquez has done well since surgery. She feels her pain is controlled but she has not been very active. She did report passing a small amount of flatus this morning. The nurse had notified me this morning of borderline urine output overnight. She denies any nausea. OBJECTIVE Afebrile with stable vitals. ABDOMEN: Soft, appropriately tender. She has slight distention. Her dressing remains intact. HEART: Pulse of 79-81 on telemetry with an irregularly irregular rhythm. ASSESSMENT 1. Postop day #1 status post open resection of distal transverse colon, splenic flexure, and proximal descending colon with anastomosis - doing well. 2. Chronic atrial fibrillation - stable pulse. 3. Hypertension - chronic, stable. 4. Hypothyroidism - chronic, stable. 5. Personal history of DVT. 6. Personal history of stroke. 7. 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 PLAN 1. I would like to continue the Zamora catheter to monitor urine output today and see if her fluid status is appropriate. I do not want to be too aggressive with IV fluids given her age of 85 and her need for Lasix on an outpatient basis. 2. Start clear liquid diet today. This may help regulate fluid balance and she is not having nausea. 3. Continue Entereg to try to avoid a postoperative ileus in this elderly patient. 4. Continue same pain regimen until she is taking more in the way of oral intake. 5. Lovenox 30 b.i.d. was started this morning to try to prevent recurrent DVT. She also has SCDs ordered. I encouraged ambulation to also try to prevent blood clots. 6. I do not want to start full anticoagulation until tomorrow given the omental bleeding that had to be controlled during surgery. If hemoglobin remains stable tomorrow, then I think it would be reasonable to start therapeutic Lovenox and her Coumadin. MTDD
[2016-07-22] MEDS ORDERED: ERTAPENEM 1 G in NS 100 ML IV ONE (14:00)
--- NOTE | 2016-07-22 20:20 | NUR ---
STATUS PT A/O X3. UP WITH ASSIST OF ONE WITH GAIT BELT. PT COMPLAINS OF PAIN IN ABD. PRN TORADOL GIVEN DOCUMENTED. PT ABLE TO PASS GAS AND STOOL. VS STABLE. PT ON RA. DENIES SOA OR NAUSEA. TOLERATING CL LIQUIDS WELL. BAILEY PATENT AND DRAINING. ADEQUATE OUTPUT. AMBULATED IN HALLS WITH ASSISTANCE X4. PT RESTING IN BED WITH ALARM. CALL LIGHT WITHIN REACH. WILL CONTINUE TO MONITOR.
[2016-07-22] MEDS: LATANOPROST 0.005% EYE DROPS 2.5 ML BOTTLE BOTH EYES SCH (20:42)
[2016-07-23] VITALS (7 sets, daily range): BP systolic 132–143; BP diastolic 62–99; PULSE 60–70; RESP 16–19; TEMP 96–98.5; O2SAT 90–93
[2016-07-23] MEDS: KETOROLAC 30mg/ml INJECTION IV PRN (00:10)
--- NOTE | 2016-07-23 03:01 | NUR ---
SHIFT SUMMARY PT ALERT/ORIENTED X3,VITAL SIGNS STABLE ON RM AIR. COMPLAINS OF SOA WHILE AMBULATING, DENIES N/V/CHEST PAIN. PT HAS ASKED FOR PRN PAIN MEDICATION, IV TORADOL WAS ADMINISTERED ONCE ON THIS SHIFT. TURNED IN BED X1 ASSIST. PT SLEPT WELL THROUGHOUT THE NIGHT. CLEAR LIQUID DIET. SCDS ON, CALL LIGHT IN REACH. BED ALARM ON. WILL CONTINUE TO MONITOR.
[2016-07-23] MEDS: ACETAMINOPHEN 500 MG TABLET PO SCH ×3 (05:19→21:18)
[2016-07-23] MEDS: LR 1,000 ML IV SCH ×2 (05:19→19:05)
[2016-07-23] MEDS: LEVOTHYROXINE 100 MCG TABLET PO SCH (05:21)
[2016-07-23 07:55] LABS: BASOPHILS % (AUTO) 0.5 % (0-2); EOSINOPHILS # (AUTO) 0.1 T/MM3 (0-0.5); EOSINOPHILS % (AUTO) 1.6 % (0-4); HCT - HEMATOCRIT 39.3 % (36-46); HGB - HEMOGLOBIN 12.7 GM/DL (12-16); IMMATURE GRANULOCYTE # (AUTO) 0.03 T/MM3 (0.00-0.03); IMMATURE GRANULOCYTE % (AUTO) 0.3 % (0.0-0.5); LYMPHOCYTES # (AUTO) 1.3 T/MM3 (1-4.8); LYMPHOCYTES % (AUTO) 14.6 % (23-45); MEAN CORPUSCULAR HGB 29.2 UUG (26-34); MEAN CORPUSCULAR HGB CONC(MCHC 32.3 GM/DL (31-37); MEAN CORPUSCULAR VOLUME 90.3 UM3 (80-100); MEAN PLATELET VOLUME 10.1 UM3 (9.4-12.4); MONOCYTES # (AUTO) 0.8 T/MM3 (0-0.8); MONOCYTES % (AUTO) 8.7 % (0-9.0); NEUTROPHILS #(AUTO)-ABSOLUTE 6.5 T/MM3 (1.8-7.7); NEUTROPHILS % (AUTO) 74.3 % (33-66); RED BLOOD COUNT 4.35 M/MM3 (4.00-5.20); WBC - WHITE BLOOD COUNT 8.8 T/MM3 (4.5-11.0)
[2016-07-23 08:08] LABS: CHLORIDE 107 MEQ/L (98-107); CO2 - CARBON DIOXIDE 28 MEQ/L (22-30); POTASSIUM 4.2 MEQ/L (3.6-5); SODIUM 142 MEQ/L (134-144)
[2016-07-23 08:09] LABS: ANION GAP 7 MEQ/L (5-15); BUN/CREATININE RATIO 26 RATIO (6-26); CALCIUM 8.2 MG/DL (8.4-10.2); CREATININE 0.7 MG/DL (0.7-1.2); GLOMERULAR FILTRATION RATE 79; GLUCOSE 102 MG/DL (65-110)
[2016-07-23] MEDS: ALVIMOPAN 12 MG CAPSULE PO SCH ×2 (08:41→21:16)
[2016-07-23] MEDS: ENOXAPARIN 30 MG/0.3 ML INJECTION SQ SCH ×2 (08:41→21:17)
[2016-07-23] MEDS: VERAPAMIL SR 240 MG TABLET PO SCH (08:43)
--- NOTE | 2016-07-23 09:49 | NUR ---
CM CM IN TO VISIT WITH PT. SHE IS ALERT AND ORIENTED. SHE CONFIRMS THAT HER PLAN IS TO RETURN HOME WITH ASSISTANCE FROM HER DAUGHTERS. CM VISITS WITH HER ABOUT HHS FOR PT/OT. PT REFUSED HHS AT THIS TIME. SHE IS REMINDED THAT SHE HAS CM CONTACT INFORMATION AND IS ENCOURAGED TO CONTACT CM IF DC NEEDS [facility]ISE. SHE VERBALIZED UNDERSTANDING.
[2016-07-23] MEDS ORDERED: FUROSEMIDE 20 MG TABLET PO ONE (10:20)
--- NOTE | 2016-07-23 10:20 | NUR ---
COUMADIN CONSULT (Initial) Dx: chronic atrial fib Today's INR = 1.22. Will give Warfarin 3 mg today. This is the patient's home dose. Will continue to monitor & make adjustments accordingly. Thank you.
--- NOTE | 2016-07-23 11:08 | NUR ---
STATUS PT A&OX3. DENIES PAIN. IVF LR DECREASED FROM 125 TO 50 MLS/HR. PT AMBULATED X2. BAILEY DISCONTINUED. DIET ADVANCE FROM CLR LIQ TO CARDIAC. PT RESTING IN RECLINER, WHEELS LOCKED, ALARM IN PLACE. WILL CONTINUE TO MONITOR.
[2016-07-23] MEDS ORDERED: WARFARIN 3 MG TABLET PO SCH (12:00)
[2016-07-23] MEDS ORDERED: POTASSIUM CL. 10mEq CAP PO ONE (12:00)
[2016-07-23] MEDS: DIGOXIN 125 MCG TABLET PO SCH (12:52)
--- NOTE | 2016-07-23 13:00 | NUR ---
STATUS-MEDICATION A&OX3. HR 70, DIGOXIN GIVEN. PAIN 6/10, PRN TYLENOL GIVEN.
[2016-07-23] MEDS: OXYCODONE I.R. 5 MG TABLET PO PRN ×3 (16:19→23:23)
--- NOTE | 2016-07-23 18:34 | NUR ---
STATUS PATIENT IS ALERT AND ORIENTED X3. PATIENT VITALS ARE STABLE AND PATIENT IS ON ROOM AIR. PATIENT DRESSING IS CLEAN DRY AND INTACT. PATIENT IS UP WITH 1X ASSIST. PATIENT HAS AMBULATED FLOOR 3X WITH NURSING STAFF. PATIENT HAS REQUIRED PRN PO PAIN MEDICATION. WILL CONTINUE TO MONITOR.
[2016-07-23] MEDS: LATANOPROST 0.005% EYE DROPS 2.5 ML BOTTLE BOTH EYES SCH (21:18)
[2016-07-24] VITALS (7 sets, daily range): BP systolic 133–145; BP diastolic 64–69; PULSE 51–65; RESP 16–20; TEMP 96.4–98.2; O2SAT 92–94
--- NOTE | 2016-07-24 00:54 | NUR ---
Chart Check 24 hour chart check completed
--- NOTE | 2016-07-24 03:51 | NUR ---
STATUS PATIENT IS ALTER AND ORIENTEDX3. PATIENT C/O PAIN AT [facility] . PATIENT HAS ASKED FOR PRN PAIN MEDICATION.PRN NORCO WAS ADMINISTRATED TWICE ON THIS SHIFT. PATIENT SLEPT WELL THROUGHOUT THE SHIFT. PATIENT AMBULATED TO BATHROOM WITH GAIT BELT AND ONE STANDBY ASSIST.PATIENT HAD ADEQUATE URINARY OUTPUT. SM SOFT STOOL BM X1 DURING NIGHT. ON ROOM AIR. DENIES CHEST PAIN,SOA,OR N/V. DRESSING DRY ,INTACT AT [facility].IV FLUID IS RUNNING WELL THROUGH IVL AT [facility].CALL LIGHT WITHIN REACH. BED ALARM ON.CONTINUE TO MONITOR.
[2016-07-24] MEDS: ACETAMINOPHEN 500 MG TABLET PO SCH ×3 (04:07→21:01)
[2016-07-24 05:47] LABS: BASOPHILS % (AUTO) 0.5 % (0-2); EOSINOPHILS # (AUTO) 0.2 T/MM3 (0-0.5); HCT - HEMATOCRIT 39.6 % (36-46); HGB - HEMOGLOBIN 12.7 GM/DL (12-16); IMMATURE GRANULOCYTE # (AUTO) 0.04 T/MM3 (0.00-0.03); IMMATURE GRANULOCYTE % (AUTO) 0.5 % (0.0-0.5); LYMPHOCYTES # (AUTO) 1.5 T/MM3 (1-4.8); LYMPHOCYTES % (AUTO) 20.5 % (23-45); MEAN CORPUSCULAR HGB 29.3 UUG (26-34); MEAN CORPUSCULAR HGB CONC(MCHC 32.1 GM/DL (31-37); MEAN CORPUSCULAR VOLUME 91.2 UM3 (80-100); MEAN PLATELET VOLUME 10.5 UM3 (9.4-12.4); MONOCYTES # (AUTO) 0.8 T/MM3 (0-0.8); MONOCYTES % (AUTO) 10.8 % (0-9.0); NEUTROPHILS #(AUTO)-ABSOLUTE 4.7 T/MM3 (1.8-7.7); NEUTROPHILS % (AUTO) 64.7 % (33-66); RED BLOOD COUNT 4.34 M/MM3 (4.00-5.20); WBC - WHITE BLOOD COUNT 7.3 T/MM3 (4.5-11.0)
[2016-07-24 05:53] LABS: INR 1.16 (0.76-1.04); PROTHROMBIN TIME 12.6 SEC (9.31-12.49)
[2016-07-24 06:00] LABS: ANION GAP 8 MEQ/L (5-15); BUN/CREATININE RATIO 21 RATIO (6-26); CALCIUM 8.3 MG/DL (8.4-10.2); CHLORIDE 106 MEQ/L (98-107); CO2 - CARBON DIOXIDE 29 MEQ/L (22-30); CREATININE 0.7 MG/DL (0.7-1.2); GLOMERULAR FILTRATION RATE 79; GLUCOSE 100 MG/DL (65-110); POTASSIUM 4.2 MEQ/L (3.6-5); SODIUM 143 MEQ/L (134-144)
[2016-07-24] MEDS: LEVOTHYROXINE 100 MCG TABLET PO SCH (06:07)
[2016-07-24] MEDS ORDERED: SCOPOLAMINE PATCH REMOVAL TD SCH (07:45)
[2016-07-24] MEDS: VERAPAMIL SR 240 MG TABLET PO SCH (08:51)
[2016-07-24] MEDS: POTASSIUM CL. 10mEq CAP PO SCH (08:51)
[2016-07-24] MEDS: ALVIMOPAN 12 MG CAPSULE PO SCH ×2 (08:56→21:00)
[2016-07-24] MEDS: DIGOXIN 125 MCG TABLET PO SCH (08:56)
[2016-07-24] MEDS: FUROSEMIDE 20 MG TABLET PO SCH (08:56)
[2016-07-24] MEDS: ENOXAPARIN 30 MG/0.3 ML INJECTION SQ SCH ×2 (08:57→21:01)
[2016-07-24] MEDS: OXYCODONE I.R. 5 MG TABLET PO PRN ×3 (09:04→21:00)
--- NOTE | 2016-07-24 10:23 | NUR ---
COUMADIN CONSULT S: 85 yo female admitted for open resection of splenic flexure due to malignant Neoplasm of Colon. Patient has a history of taking Warfarin 3 mg daily for chronic atrial fibrillation. The patient is currently on a warfarin protocol and a Enoxaparin 30 mg po bid. O: Date INR Dose 07/23 1.22 3 mg 07/24 1.16 Plan 5 mg A/P: I plan to give the patient a dose of warfarin 5 mg today, because the INR is subtherapeutic and fall from yesterday. The pharmacy will continue to monitor the INRs and adjust the dosage of the Coumadin accordingly. Thanks for the Warfarin Dosing Protocol, Philip Juarez RPh.
[2016-07-24] MEDS ORDERED: WARFARIN 5 MG TABLET PO SCH (12:00)
[2016-07-24] MEDS: LR 1,000 ML IV SCH (17:04)
--- NOTE | 2016-07-24 18:15 | NUR ---
STATUS PT ALERT AND ORIENTED. PT RESTED WELL TODAY. PT UP WITH HELP X1, AND GAITBELT. PT REPORTS PAIN CONTROLLED AT A 1/2 AFTER RECIEVING ROXICODONE 5MG THIS EVENING. PT REPORTS NO OTHER DISCOMFORTS AT THIS TIME. PT IS AWARE OF HOW TO USE HER CALL LIGHT TO GET A HOLD OF STAFF.
[2016-07-24] MEDS: LATANOPROST 0.005% EYE DROPS 2.5 ML BOTTLE BOTH EYES SCH (21:00)
--- NOTE | 2016-07-24 23:25 | PNF ---
DATE 07/24/2016 POSTOP DAY #3 HISTORY The patient states she ambulated four times yesterday. She has ambulated once today already. She is tolerating a regular diet. She has not had any nausea or vomiting. She is passing some flatus. She is up in a chair at this time. The patient is receiving Lovenox 30 mg subcutaneously b.i.d. The patient did receive 5 mg of Coumadin p.o. today. PHYSICAL EXAMINATION VITAL SIGNS: Temperature is 96.9 degrees oral. Pulse is 61. Respiratory rate is 16. Blood pressure is 137/68. Oxygen saturation is 93% on room air. ABDOMEN: Dressings are in place over the abdominal incision. LABORATORY DATA White blood cell count is 7300 today. Hemoglobin is 12.7. Hematocrit is 39.6. Electrolytes were all normal. Serum creatinine is 0.7. INR is 1.16 today. IMPRESSION 1. Doing well following open resection of distal transverse colon, splenic flexure, and proximal descending colon with primary anastomosis on 07/21/2016. 2. Personal history of DVT. 3. Personal history of stroke. 4. Chronic atrial fibrillation. PLAN 1. Continue postoperative care. 2. Continue Lovenox 30 mg subcutaneously b.i.d. 3. Continue Coumadin. 4. Monitor INR. MTDD
[2016-07-25 01:03] VITALS: BP 173/73; PULSE 75; RESP 16; TEMP 96.1; O2SAT 92
[2016-07-25] MEDS: OXYCODONE I.R. 5 MG TABLET PO PRN ×2 (02:21→17:46)
[2016-07-25 04:42] VITALS: BP 140/68; PULSE 71; RESP 16; TEMP 98.1; O2SAT 92
[2016-07-25 05:40] LABS: INR 1.17 (0.76-1.04); PROTHROMBIN TIME 12.8 SEC (9.31-12.49)
[2016-07-25] MEDS: LEVOTHYROXINE 100 MCG TABLET PO SCH (05:48)
[2016-07-25] MEDS: ACETAMINOPHEN 500 MG TABLET PO SCH ×3 (05:48→21:34)
--- NOTE | 2016-07-25 06:18 | NUR ---
SHIFT SUMMARY PT ALERT AND ORIENTED X3,VITAL SIGNS REMAIN STABLE ON ROOM AIR. DENIES C/P,N/V AND SOA. PT HAS RATED PAIN A 1/10 AND AFTER AMBULATION A 5/10, ONE DOSE OF PRN PAIN MEDICATION GIVEN. PT HAS HAD ADEQUATE URINE OUTPUT, BUT CONTINUES TO MISS THE HAT. PT AMBULATED ONCE AT THE START OF SHIFT AND ONCE THIS AM. WILL CONTINUE TO MONITOR.
[2016-07-25 08:10] VITALS: BP 153/67; PULSE 67; RESP 16; TEMP 98.3; O2SAT 94
[2016-07-25] MEDS: POTASSIUM CL. 10mEq CAP PO SCH (08:32)
[2016-07-25] MEDS: ALVIMOPAN 12 MG CAPSULE PO SCH ×2 (08:32→21:33)
[2016-07-25] MEDS: FUROSEMIDE 20 MG TABLET PO SCH (08:32)
[2016-07-25] MEDS: DIGOXIN 125 MCG TABLET PO SCH (08:33)
[2016-07-25] MEDS: VERAPAMIL SR 240 MG TABLET PO SCH (08:33)
[2016-07-25] MEDS: ENOXAPARIN 30 MG/0.3 ML INJECTION SQ SCH ×2 (08:33→21:33)
--- NOTE | 2016-07-25 09:21 | NUR ---
COUMADIN CONSULT S: 85 yo female admitted for open resection of splenic flexure due to malignant Neoplasm of Colon. Patient has a history of taking Warfarin 3 mg daily for chronic atrial fibrillation. The patient is currently on a warfarin protocol and a Enoxaparin 30 mg po bid. O: Date INR Dose 07/23 1.22 3 mg 07/24 1.16 5 mg 07/25 1.17 Plan 5 mg A/P: I plan to give the patient a dose of warfarin 5 mg today, because the INR is subtherapeutic and but has gome up from yesterday. The pharmacy will continue to monitor the INRs and adjust the dosage of the Coumadin accordingly. Thanks for the Warfarin Dosing Protocol, Philip Juarez RPh.
[2016-07-25] MEDS ORDERED: WARFARIN 5 MG TABLET PO SCH (12:00)
[2016-07-25 12:31] VITALS: BP 152/65; PULSE 66; RESP 16; TEMP 97.8; O2SAT 94
--- NOTE | 2016-07-25 14:09 | PNF ---
DATE 07/25/16 POSTOP DAY #4 HISTORY The patient states that she ambulated five times yesterday. She has been up a couple times today. She is in a chair at the present time. She continues to tolerate a regular diet. She has not had any nausea or vomiting. She continues to pass flatus. The patient is receiving Lovenox 30 mg subcutaneously b.i.d. The patient is also receiving Coumadin. PHYSICAL EXAMINATION VITAL SIGNS: Temperature is 97.8 degrees oral. Pulse is 66. Respiratory rate is 16. Blood pressure is 152/65. Oxygen saturation is 94% on room air. ABDOMEN: The abdomen is soft. The dressings are in place at the abdominal incision. LABORATORY DATA INR is 1.17 today. IMPRESSION 1. Doing well following open resection of distal transverse: colon,, splenic flexure and proximal descending colon with primary anastomosis on 07/21/16. 2. Personal history of DVT. 3. Personal history of stroke. 4. Chronic atrial fibrillation. PLAN 1. Continue postoperative care. 2. Continue Lovenox 30 mg subcutaneously b.i.d. 3. Continue Coumadin. 4. Monitor INR. MTDD
[2016-07-25] MEDS: LR 1,000 ML IV SCH (15:00)
[2016-07-25 15:53] VITALS: BP 150/68; PULSE 63; RESP 14; TEMP 98.2; O2SAT 94
--- NOTE | 2016-07-25 17:20 | NUR ---
Summary Pt A&OX3. VS stable on RA. Pt up with standby assistance while ambulating in the hallway and to the BR. Pt has had adequate urine output and a small bowel movement this shift. This RN assisted Pt to ambulate in the hallway X3 today, tolerated well. Pt has been up in the recliner for most of this shift, family visited with Pt this afternoon. Dressing to abdomen c/d/i. Pt has denied nausea, and rated pain a 1/10. Scheduled Tylenol given at that time.
--- NOTE | 2016-07-25 17:46 | NUR ---
PAIN PT RATES PAIN AT A 2/10 ON THE PAIN SCALE AND REQUESTS ROXICODONE 5MG. PT REPORTS AT THIS TIME NO FURTHER CONCERNS. PT STATES SHE WILL USE HER CALL LIGHT FOR ASSISTANCE IF NEEDED.
--- NOTE | 2016-07-25 19:16 | NUR ---
STATUS PT RESTING COMFORTABLY AT THIS TIME. PT RATES PAIN AT A 1/10. PT REPORTS MORE PAIN WITH MOVEMENT, HOWEVER STABLE AT THIS TIME. PT AWARE OF HOW TO USE HER CALL LIGHT TO GET A HOLD OF STAFF. PT UP WITH ASSIST X1, AND GAIT BELT. PT HOLDS ON TO IV POLE WHEN AMBULATING. PT REPORTS NOT USING A WALKER AT HOME. PT STATES "I USUALLY GET AROUND BETTER AT HOME." NO FURTHER CONCERNS FROM STAFF AT THIS TIME.
[2016-07-25 20:13] VITALS: BP 162/75; PULSE 71; RESP 20; TEMP 98.3; O2SAT 94
[2016-07-25] MEDS: LATANOPROST 0.005% EYE DROPS 2.5 ML BOTTLE BOTH EYES SCH (21:35)
[2016-07-26 00:50] VITALS: BP 160/70; PULSE 73; RESP 16; TEMP 96.7; O2SAT 93
[2016-07-26] MEDS: OXYCODONE I.R. 5 MG TABLET PO PRN (03:51)
[2016-07-26 03:53] VITALS: BP 156/81; PULSE 76; RESP 14; TEMP 97.1; O2SAT 94
[2016-07-26 05:22] LABS: INR 1.39 (0.76-1.04); PROTHROMBIN TIME 15.1 SEC (9.31-12.49)
[2016-07-26] MEDS: LEVOTHYROXINE 100 MCG TABLET PO SCH (05:33)
[2016-07-26] MEDS: ACETAMINOPHEN 500 MG TABLET PO SCH ×2 (05:33→13:20)
--- NOTE | 2016-07-26 05:57 | NUR ---
SHIFT SUMMARY PATIENT IS ALERT AND ORIENTED X3 THIS SHIFT. VITAL SIGNS HAVE BEEN STABLE ON ROOM AIR. PATIENT IS UP BY STAND BY, BUT USES THE IV POLE FOR STABILITY. PATIENT HAS REPORTED PAIN AT 1-2/10 THIS SHIFT. SCHEDULED TYLENOL AND 1 PRN ROXICODONE HAVE KEPT PAIN AT THIS LEVEL. PATIENT HAS DENIED ANY NAUSEA OR VOMITING. PATIENT AMBULATED IN THE STOUT ONE TIME THIS SHIFT. GAIT WAS STEADY AND THERE WERE NO CONCERNS. WILL CONTINUE TO MONITOR.
[2016-07-26 07:29] VITALS: PULSE 71; RESP 16
[2016-07-26 08:02] VITALS: BP 164/81; PULSE 71; RESP 16; TEMP 97.3; O2SAT 93
[2016-07-26] MEDS: ALVIMOPAN 12 MG CAPSULE PO SCH (08:28)
[2016-07-26] MEDS: DIGOXIN 125 MCG TABLET PO SCH (08:28)
[2016-07-26] MEDS: FUROSEMIDE 20 MG TABLET PO SCH (08:28)
[2016-07-26] MEDS: VERAPAMIL SR 240 MG TABLET PO SCH (08:29)
[2016-07-26] MEDS: POTASSIUM CL. 10mEq CAP PO SCH (08:29)
[2016-07-26] MEDS: ENOXAPARIN 30 MG/0.3 ML INJECTION SQ SCH (08:29)
--- NOTE | 2016-07-26 09:23 | NUR ---
WARFARIN CONSULT S: 85 y/o F on warfarin for afib and extended secondary DVT prophylaxis. Goal INR 2-3. Home dose of warfarin is 3 mg daily. O: Date INR Warfarin Dose (Warfarin held 07/16-07/25 in prep for surgery) 07/23 1.22 3 mg 07/24 1.16 5 mg 07/25 1.17 5 mg 07/26 1.39 4 mg A/P: INR subtherapeutic but rising. Will order warfarin 4 mg PO today. No significant drug-drug interactions. Will continue to monitor & make adjustments accordingly. Thank you for the consult. Olivia Hightower, PharmD, BCPS
[2016-07-26] MEDS: LR 1,000 ML IV SCH (09:49)
--- NOTE | 2016-07-26 11:10 | NUR ---
CARMELA CASEY VISITED PT. CM EXPLAINED ROLE AND PROVIDED CONTACT INFORMATION. PT PLANS TO RETURN HOME POST STAY [place] [facility] [place] PT DENIES NEEDS. PT STATES THAT HE DAUGHTER LIVES WITH HER AND SHE FEELS THAT SHE HAS ENOUGH HELP AT HOME. PT IS AWARE TO CONTACT CM IF NEEDS ARISE.
[2016-07-26 11:57] VITALS: BP 167/67; PULSE 91; RESP 16; TEMP 97.5; O2SAT 94
[2016-07-26] MEDS ORDERED: WARFARIN 4 MG TABLET PO ONE (12:00)
--- NOTE | 2016-07-26 12:20 | NUR ---
Status Pt requests this RN remove SCD's, IV tubing, and Telemetry. Pt stated "It doesn't do any good to leave all of this on when Dr. Hernandez will be coming to see me soon so I want it all off now." This RN verbalized to Pt that IV lock had to stay in until time of discharge.
[2016-07-26] MEDS ORDERED: WARF1TAB6 PO (14:05)
[2016-07-26] MEDS ORDERED: OXYC5TAB84 PO (14:12)
[2016-07-26] MEDS ORDERED: ACET-2723 PO (14:12)
--- NOTE | 2016-07-26 14:26 | NUR ---
Discharge Pt discharged at this time via wheelchair through the main entrance in the company of an adult. IV catheter DC'd prior to discharge, catheter tip intact. Personal belongings sent with Pt, prescription sent with Pt to take to preferred pharmacy. Discharge packet and instructions gone over with Pt. This RN discussed medications, activity, restrictions, diet, and follow up appts with Pt. Wristband removed.
--- NOTE | 2016-07-26 18:01 | PNF ---
DATE OF VISIT 07/23/2016 REASON FOR VISIT Postoperative followup. SUBJECTIVE Christina is doing well. She has tolerated the clear liquid diet so far. She did have a bowel movement this morning. Her bowel movements remain bloody. Pain control has been adequate. OBJECTIVE VITAL SIGNS: Afebrile with stable vitals on room air. GENERAL: The patient is awake and alert, in no acute distress. ABDOMEN: Soft, appropriately tender. Her bandage was removed and changed. She does have some bloody drainage on her gauze dressing but her incision is clean, dry and intact. There is no evidence of infection. LABORATORY DATA White blood cell count 8.8. Hemoglobin 12.7, down from 13.8 yesterday. ASSESSMENT 1. Postop day #2 status post open resection of distal transverse colon, splenic flexure, and proximal descending colon with anastomosis - doing well. 2. Chronic atrial fibrillation - stable. 3. Hypertension - chronic, stable. 4. Hypothyroidism - chronic, stable. 5. Personal history of DVT. 6. Personal history of stroke. 7. 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 PLAN 1. Discontinue Zamora catheter. 2. Advance to regular diet. 3. With her hemoglobin drop I would like to leave her at a prophylactic dose of Lovenox. 4. Resume Coumadin per pharmacy consult. 5. Recheck lab tomorrow. 6. I will allow showering. 7. Decrease IV fluids to 50 mL/hr. 8. Continue Entereg. 9. Resume home Lasix and potassium. 10. Start Roxicodone 5 mg q.3h. p.r.n. pain. 11. Dr. Patel will be covering surgical care for the weekend and I will resume care on Tuesday if the patient is still in the hospital. Discharge instructions were placed into the EMR. ORLANDOD
--- NOTE | 2016-07-26 18:12 | PNF ---
DATE OF VISIT 07/26/2016 REASON FOR VISIT Postoperative followup. SUBJECTIVE Christina did well over the weekend. She has tolerated a regular diet. She is ambulating well. She is having bowel movements. She is wondering if she would be able to go home and does desire to leave the hospital. OBJECTIVE VITAL SIGNS: Afebrile. Her systolic blood pressure has been in the 150s to 160s. GENERAL: The patient is awake and alert, in no acute distress. ABDOMEN: Soft, appropriately tender. She has some bloody drainage on her bandage. Her incision is clean, dry and intact and shows ecchymosis but no signs of infection. EXTREMITIES: No significant pitting edema. LABORATORY INR is 1.39 this morning. ASSESSMENT 1. Postop day #5 status post open resection of distal transverse colon, splenic flexure, and proximal descending colon with anastomosis - doing well. 2. Chronic atrial fibrillation - stable. 3. Hypertension - chronic, mildly elevated blood pressure but not clinically significant. 4. Hypothyroidism - chronic, stable. 5. Personal history of DVT. She is ambulating well. 6. Personal history of stroke. 7. Chronic anticoagulation with Coumadin - INR still subtherapeutic. 8. 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 PLAN 1. Given her progress over the weekend I do think that Christina is ready for dismissal. 2. I will send her home with 30 pain pill tablets and she should be on scheduled Tylenol as well. 3. I did contact Dr. Dumont and had a discussion about options of no Lovenox versus prophylactic Lovenox versus therapeutic Lovenox until anticoagulation was resumed. Given her age and recent surgery, I do feel that it would be reasonable to simply let her INR drift back up with resuming her home 3-mg dose and checking her INR tomorrow with Dr. Dumont. I did discuss with the patient that I feel that slow resumption of anticoagulation would be lower risk than dual anticoagulation with Lovenox and Coumadin. I did explain that DVT and stroke risk would not be zero. The patient was willing to simply resume her Coumadin at home and continue ambulation. 4. See discharge instructions. Her questions about driving and followup were answered. MAGGIE
--- NOTE | 2016-07-27 13:10 | DSF ---
REASON FOR HOSPITALIZATION Scheduled surgery. DISCHARGE DIAGNOSES 1. 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 2. Chronic paroxysmal atrial fibrillation - present on admission. 3. Chronic hypertension - present on admission. 4. Hypothyroidism - chronic, present on admission. 5. Coumadin anticoagulation for personal history of DVT and personal history of stroke. PROCEDURES The patient underwent open resection of the distal transverse colon, splenic flexure, and proximal descending colon with a [id number] functional end-to-end anastomosis on 07/21/[address] Hernandez with the assistance of Dr. Patel. CONSULTATIONS None. PERTINENT LAB INR on admission was 1.02 and increased to 1.39 on discharge. Hemoglobin was stable at 12.7 on 07/24/2016. BRIEF HOSPITAL COURSE The patient was admitted and had scheduled surgery. Postoperatively she was doing well and was transferred to the floor. She did have a Zamora catheter for two days after surgery. She was started on prophylactic Lovenox at 30 mg b.i.d. on the morning of postop day #1. She had also received a preoperative dose of subcutaneous heparin. She had SCDs ordered. She was given Entereg to try to avoid a postoperative ileus. She was advanced to a clear liquid diet on postop day #1. She was placed on scheduled Tylenol and had Dilaudid for breakthrough. This was transitioned to oral oxycodone on postop day #2. She made great progress on postop day #2 and her catheter was removed. She was left at prophylactic Lovenox due to a slight drop in hemoglobin but this was stable the following day. Her Coumadin was resumed on postop day #2. Over the weekend she did well and had no major changes. She did tolerate a regular diet. She had been continued on prophylactic Lovenox over the weekend. By the day of discharge she was doing well and was dismissed home with the plan to continue the resumption of her Coumadin and encouraged ambulation at home instead of outpatient prophylactic or therapeutic Lovenox. DISCHARGE INSTRUCTIONS DIET: Resume regular diet as tolerated. ACTIVITY: No lifting greater than 15 pounds for a month. She was encouraged to walk frequently. FOLLOWUP: The patient should follow up with Dr. Hernandez in about two weeks after surgery for staple removal. She should also follow up with [facility] for an INR check tomorrow and for management of her warfarin by Dr. Dumont. WOUND CARE. She may shower and may remove her dressing whenever desired. She should avoid tub baths for two weeks. MAGGIE
== END 2016-07-26 14:26 | disposition home or self-care (01) | DRG 331 ==
LOC: SRG 05:51
PROVIDERS: ADMIT Surgery; ATTEND Surgery
PROC: 0DBM0ZZ Excision of Descending Colon, Open Approach (ICD-10-PCS; 2016-07-21)
PROC: 0DBL0ZZ Excision of Transverse Colon, Open Approach (ICD-10-PCS; principal; 2016-07-21 07:30)
DX: C18.4 Malignant neoplasm of transverse colon (principal); K42.9 Umbilical hernia without obstruction or gangrene; I48.2 Chronic atrial fibrillation; I10 Essential (primary) hypertension; E03.9 Hypothyroidism, unspecified; Z86.73 Personal history of transient ischemic attack (TIA), and cerebral infarction without residual deficits; Z86.718 Personal history of other venous thrombosis and embolism; Z87.891 Personal history of nicotine dependence; Z79.899 Other long term (current) drug therapy; Z86.010 Personal history of colon polyps; Z79.01 Long term (current) use of anticoagulants
CPT/HCPCS: 36415; 80048; 80053; 82378; 85025; 85610; 88309; 88331; 88332; 88341; 88342